=== PATIENT | male | born 1970 | race Caucasian/White ===

== ENCOUNTER 2022-04-21 11:43 | Emergency (ER) | payer OTHER ==
[2022-04-21] MEDS ORDERED: Ketorolac 30 MG/ML SDV IM ONE (13:34)
== END 2022-04-21 14:55 | disposition home or self-care (01) ==
LOC: JP.ED 11:43
DX: M79.605 Pain in left leg (principal)
CPT/HCPCS: 73562-26-LT; 73562-LT; 73590-26-LT; 73590-LT; 96372; 99283; J1885